=== PATIENT | male | born 1965 | race Caucasian/White ===

== ENCOUNTER 2018-11-21 09:51 | Inpatient (IN) | payer BC ==
[~2018-11-21] VITALS: Ht 180.3 cm; Wt 96.4 kg
[2018-11-21] VITALS (34 sets, daily range): BP systolic 91–137; BP diastolic 51–71; PULSE 41–85; TEMP 97.3–98.2; O2SAT 94–100
[2018-11-21 10:17] LABS: BASO % 0.4 % (0.0-2.0); EOS # 0.1 (0.0-0.7); EOS % 0.8 % (0-4.0); GRAN # 5.7 (1.4-6.5); GRAN % 72.2 % (42.2-75.2); HEMATOCRIT 46.4 % (42.0-52.0); HEMOGLOBIN 15.6 g/dl (13.5-18.0); LYMPH # 1.5 (1.2-3.4); LYMPH % 18.3 % (20.0-51.0); MEAN CELL VOLUME 90 fl (80.0-100.0); MEAN CORPUSCULAR HEMOGLOBIN 30 pg (27.0-31.0); MEAN CORPUSCULAR HGB CONC 34 g/dl (33.0-37.0); MEAN PLATELET VOLUME 9.5 fl (7.4-10.4); MONO # 0.6 (0.1-0.6); PLATELET COUNT 244 K/mm3 (130-400); RED BLOOD COUNT 5.18 M/mm3 (4.20-5.60); REDCELL DISTRIBUTION WIDTH-CV 13.6 % (11.5-14.5)
[2018-11-21 10:23] LABS: ALANINE AMINOTRANSFERASE 56 U/L (21-72); ALBUMIN 4.3 gm/dL (3.5-5.0); ALKALINE PHOSPHATASE 91 U/L (50-136); ANION GAP 10 mmol/L (7-16); AST,SGOT 38 U/L (15-37); BILIRUBIN,TOTAL 1.4 mg/dL (0.0-1.0); BLOOD UREA NITROGEN 15 mg/dL (9-20); CALCIUM 9.2 mg/dL (8.4-10.2); CARBON DIOXIDE 22 mmol/L (22-30); CHLORIDE 107 mmol/L (98-107); CREATININE, serum 0.91 (0.66-1.25); GLUCOSE 98 mg/dL (74-106); POTASSIUM 3.9 mmol/L (3.4-5.0); SODIUM 138 mmol/L (137-145); TOTAL PROTEIN 7.3 gm/dL (6.4-8.2)
[2018-11-21 10:52] LABS: TROPONIN-I < 0.012 ng/mL (0.000-0.035)
--- NOTE | 2018-11-21 11:40 | NUR ---
Admitted to ICU 1 from ED via stretcher. Patient transfers SBA to ICU bed, monitors applied. Patient A/Ox4, answers all questions appropriately. HR 40's on arrival. Denies complaints of pain at this time. [place] to room and unit. and son at side.
--- NOTE | 2018-11-21 13:10 | NUR ---
To Identification Clerk via bed with Lori HA and Nessa HUMPHRIES
--- NOTE | 2018-11-21 13:46 | NUR ---
ALL MEDICATIONS GIVEN VORB WITH MD. SEE MERGE FOR ALL MEDICATION ADMIN TIMES. SEE MERGE FOR ALL RASS ASSESSMENTS DURING PROCEDURE. ANTIBIOTICS GIVEN PRE-PROCEDURE, REFER TO MAR.
--- NOTE | 2018-11-21 14:55 | NUR ---
Patient arrived to room at this time. Was able to walk from OR bed to room without difficulty. No dizziness, gait steady. Was able to use restroom independently then transfer to bed. Denies having any pain to site. Did request a pillow to prop arm on which makes it more comfortable. Patient has arm in sling. Family is at bedside, call light is within reach.
--- NOTE | 2018-11-21 18:32 | NUR ---
Patient has been up walking in halls, denies having pain. Has eaten and drank well. is at bedside. Call light is in reach.
--- NOTE | 2018-11-21 19:00 | NUR ---
Patient returned from procedure at 1845, dressing is CDI. Denies pain but would like a pain med to stay ahead of schedule. Call light is within reach.
--- NOTE | 2018-11-21 23:13 | NUR ---
Completed assessment and medication administration; PT tolerated all cares well; PT AMB in berkowitz without complaints or imbalance; LUE sling in place; PT A&Ox4, BS active x4, AMB stable, surgical site CDI, corrective lenses, GISEL hand IVs in place INT; No further assessed or verbalized concerns at time of exit; PT able to return to comfortable position in bed with personal items and call light within reach; Ice placed to surgical site; Will continue to monitor. CDA
[2018-11-22 03:27] VITALS: BP 102/49; PULSE 65; TEMP 98.1
[2018-11-22 05:37] VITALS: BP 119/56; PULSE 71
[2018-11-22 06:06] LABS: BASO % 0.3 % (0.0-2.0); EOS # 0.2 (0.0-0.7); EOS % 2.2 % (0-4.0); GRAN # 4.6 (1.4-6.5); GRAN % 65.9 % (42.2-75.2); HEMATOCRIT 47.2 % (42.0-52.0); HEMOGLOBIN 15.6 g/dl (13.5-18.0); LYMPH # 1.6 (1.2-3.4); LYMPH % 22.8 % (20.0-51.0); MEAN CELL VOLUME 90 fl (80.0-100.0); MEAN CORPUSCULAR HEMOGLOBIN 30 pg (27.0-31.0); MEAN CORPUSCULAR HGB CONC 33 g/dl (33.0-37.0); MEAN PLATELET VOLUME 9.8 fl (7.4-10.4); MONO # 0.6 (0.1-0.6); MONO % 8.5 % (1.7-9.3); PLATELET COUNT 219 K/mm3 (130-400); RED BLOOD COUNT 5.25 M/mm3 (4.20-5.60); REDCELL DISTRIBUTION WIDTH-CV 13.5 % (11.5-14.5)
--- NOTE | 2018-11-22 06:06 | NUR ---
PT HAD EKG THIS AM. EKG READ *ACUTE DE* THIS NURSE NOTIFIED [facility] AND WILL CONTACT CARDS IN THE AM. VITALS WHERE OBTAINED. PT HAD NO C/O CHEST PAIN BUT HAD C/O "SORENESS" FROM SURGERY. NO NOTED SOB OR OTHER CONSERNS VOICED.
--- NOTE | 2018-11-22 06:09 | NUR ---
notified rn of ekg saying acute mi
[2018-11-22 06:13] LABS: ALBUMIN 4.2 gm/dL (3.5-5.0); BILIRUBIN,TOTAL 1.1 mg/dL (0.0-1.0); CALCIUM 8.9 mg/dL (8.4-10.2); CREATININE, serum 0.87 (0.66-1.25); MAGNESIUM 2.2 mg/dL (1.6-2.3); POTASSIUM 4.3 mmol/L (3.4-5.0); TOTAL PROTEIN 7.1 gm/dL (6.4-8.2)
[2018-11-22 07:31] VITALS: BP 133/54; PULSE 90; TEMP 97.1
--- NOTE | 2018-11-22 09:50 | NUR ---
SW student attended clinical rounding and met with the patient, his Oriana and son Lance to discuss discharge planning. The patient lives in [place] with his and youngest son. The patient reports independence with ADLs and has no DME. The patients PCP is Carrington Lehman ([facility]) and he gets his medications at [facility]. The patient reports no difficulties obtaining his medications. The patient does not have DPOA-HC in EMR but reports he has them completed at home. The patient plans to discharge home with his family. No additional needs at this time.
[2018-11-22 11:17] VITALS: BP 122/64; PULSE 79; TEMP 97.8
[2018-11-22] MEDS ORDERED: CEPHALEXIN500 M1 PO (13:00)
--- NOTE | 2018-11-22 13:33 | NUR ---
Primary nurse was assisted by [id number] patient care by [employer] student Wyatt Moore and [employer] instructor Doris Quintanilla RN-.
--- NOTE | 2018-11-22 13:38 | NUR ---
Discharge education reviewed with patient. Patient verbalized an understanding of following doctors orders, taking scheduled meds and going to foolow up appointments. No further needs expressed from patient. Patient is wanting to finish lunch before leaving. Call light within reach
--- NOTE | 2018-11-22 13:54 | NUR ---
Nursing staff walked patient to elevator to discharge from the hospital. Personal belongings and discharge paperwork with patient. No further needs expressed from patient.
== END 2018-11-22 13:55 | disposition home or self-care (01) | DRG 244 ==
LOC: COL.ER 09:51 → ICU 10:42 → MEDICAL 15:06
PROVIDERS: Physician Assistant; ADMIT Internal Medicine Cardiovascular Disease
PROC: 0JH606Z Insertion of Pacemaker, Dual Chamber into Chest Subcutaneous Tissue and Fascia, Open Approach (ICD-10-PCS; principal; 2018-11-21)
PROC: 02H63JZ Insertion of Pacemaker Lead into Right Atrium, Percutaneous Approach (ICD-10-PCS; 2018-11-21)
PROC: 02HK3JZ Insertion of Pacemaker Lead into Right Ventricle, Percutaneous Approach (ICD-10-PCS; 2018-11-21)
DX: I44.2 Atrioventricular block, complete (principal); K21.9 Gastro-esophageal reflux disease without esophagitis; I44.1 Atrioventricular block, second degree; E78.2 Mixed hyperlipidemia
CPT/HCPCS: 99223-AI; 99238; C1785; C1894; C1898; J0690; J2250; J3010; J7030

== ENCOUNTER 2024-01-24 10:26 | Day surgery (SDC) | payer BC ==
[~2024-01-24] VITALS: Ht 180.3 cm; Wt 97.4 kg
[~2024-01-24 10:26] MED LIST: CEPHALEXIN500 M1 PO; LR 1,000 ML IV SCH
[2024-01-24] MEDS ORDERED: 1/2 NS 1,000 ML IV SCH (10:45)
[2024-01-24] MEDS ORDERED: NS Flush 10 ML SYRINGE PRN ICA (10:45)
[2024-01-24] MEDS ORDERED: LIPITOR 10MG10 MG PO (11:20)
[2024-01-24] MEDS ORDERED: TOPROL XL 25MG25 MG PO ×2 (11:20→11:21)
[2024-01-24 11:29] LABS: HEMATOCRIT 45.5 % (42.0-52.0); HEMOGLOBIN 15.2 g/dl (13.5-18.0); MEAN CELL VOLUME 88 fl (80.0-100.0); MEAN CORPUSCULAR HEMOGLOBIN 30 pg (27-31); MEAN CORPUSCULAR HGB CONC 33 g/dl (33.0-37.0); MEAN PLATELET VOLUME 8.9 fl (7.4-10.4); PLATELET COUNT 219 K/mm3 (130-400); RED BLOOD COUNT 5.16 M/mm3 (4.20-5.60); REDCELL DISTRIBUTION WIDTH-CV 13.1 % (11.5-14.5)
[2024-01-24 11:31] VITALS: BP 126/70; PULSE 60; TEMP 97.1
[2024-01-24 11:31] LABS: PROTHROMBIN TIME 11.2 SECONDS (9.7-12.8)
[2024-01-24 11:44] LABS: CALCIUM 9.2 mg/dL (8.4-10.2); CREATININE, serum 0.81 mg/dL (0.72-1.25); POTASSIUM 4.3 mEq/L (3.5-4.5)
[2024-01-24] MEDS ORDERED: Lidocaine PF 2% (20 MG/ML) 5 ML VIAL ONE (12:15)
[2024-01-24 13:10] VITALS: BP 106/67; PULSE 60
[2024-01-24 13:15] VITALS: BP 104/62; PULSE 60
[2024-01-24 13:30] VITALS: BP 107/69; PULSE 60
[2024-01-24 13:45] VITALS: BP 105/57; PULSE 60
[2024-01-24 14:00] VITALS: BP 98/63; PULSE 60
--- NOTE | 2024-01-24 14:16 | NUR ---
PT TOLERATED RECOVERY PERIOD WELL. VS REMAINED WIHTIN PT'S NORMAL LIMITS. PT TOLERATED PO FOOD AND FLUIDS. IV DISCONTINUED. PT ASSISTED TO MAIN LOBBY VIA WHEELCHAIR. PT VERBALIZED UNDERSTANDING OF DISCHARGE INSTRUCTIONS. PT FREE FROM ACUTE CONCERNS AND COMPLAINTS.
[2024-01-24] MEDS ORDERED: NS Flush 10 ML SYRINGE BID ICA SCH (21:00)
== END 2024-01-24 14:17 | disposition home or self-care (01) ==
LOC: COL.CAR 10:26
PROVIDERS: Internal Medicine Cardiovascular Disease
DX: I35.1 Nonrheumatic aortic (valve) insufficiency (principal); I34.0 Nonrheumatic mitral (valve) insufficiency; R93.1 Abnormal findings on diagnostic imaging of heart and coronary circulation
CPT/HCPCS: J2704